=== PATIENT | male | born 1965 | race Caucasian/White ===

== ENCOUNTER → 2016-09-13 | Outpatient (CLI) | payer BC ==
[~2016-09-13] MED LIST: IBUP-1050 PO; MECL1TAB42 PO; NAPR1TAB9 PO; PANT40TA PO
--- NOTE | 2016-09-13 08:17 | DIAGNOSTIC IMAGING REPORT ---
ABDOMEN COMPLETE (US) CLINICAL HISTORY: R10.11 Intermittent right upper quadrant abdominal pain COMPARISON STUDY: No previous studies for comparison. FINDINGS: No hepatic masses are visualized. The pancreas appears normal as visualized. There is no abdominal aortic dilatation. The right kidney measures 10.4 cm in length. The left kidney measures 10.9 cm in length. No focal renal masses are visualized. There is no hydronephrosis. The spleen measures 10.7 cm in length. No splenic masses are visualized. There are small gallbladder polyps versus nonshadowing calculi. The gallbladder wall is the upper limits of normal thickness measuring 3 mm. There is trace gallbladder sludge. The common bile duct measures 7 mm. IMPRESSION: 1. Small gallbladder polyps versus nonshadowing calculi 2. The gallbladder wall is the upper limits of normal thickness measuring 3 mm 3. 7 mm common bile duct 4. No evidence of intrahepatic biliary ductal dilatation. No hepatic, splenic, or renal mass identified Electronically signed by: Jm Paul M.D. 09/13/2016 8:16 AM Dictated Date/Time: 09/13/2016 8:12 AM
== END | disposition home or self-care (01) ==
LOC: C.ULTR 07:38
PROVIDERS: ATTEND Nurse Practitioner Family
DX: R10.11 Right upper quadrant pain (principal)

== ENCOUNTER → 2016-09-24 | Outpatient (CLI) | payer BC ==
--- NOTE | 2016-09-24 09:56 | DIAGNOSTIC IMAGING REPORT ---
NUCLEAR MEDICINE HEPATOBILIARY SCAN HISTORY: R10.11 Abdominal pain, RUQ (right upper quadrant)R50.9 Fever and COMPARISON: Abdominal ultrasound 09/13/2016. TECHNIQUE: Immediately following the intravenous administration of 5.7 mCi Tc-99m Choletec, dynamic anterior abdominal imaging was performed. FINDINGS: Uniform hepatic tracer accumulation is shown. Prompt intrahepatic biliary excretion is seen. The gallbladder and common bile duct are visualized at 20 minutes. Slightly delayed visualization of the small bowel at the 75 minute time interval. IMPRESSION: Slightly delayed visualization of the small bowel. However, no evidence for cystic or common bile duct obstruction. Electronically signed by: Elfego Márquez M.D. 09/24/2016 9:55 AM Dictated Date/Time: 09/24/2016 9:54 AM
== END | disposition home or self-care (01) ==
LOC: C.NUCL 08:12
PROVIDERS: ATTEND Physician Assistant
DX: R50.9 Fever, unspecified (principal); R10.11 Right upper quadrant pain; R93.2 Abnormal findings on diagnostic imaging of liver and biliary tract

== ENCOUNTER → 2016-10-09 | Day surgery (SDC) | payer BC ==
[2016-09-26 13:36] VITALS: Ht 189.2 cm; Wt 102.3 kg
[~2016-10-09] VITALS: Ht 189.2 cm; Wt 102.3 kg
[~2016-10-09] MED LIST changes: +LIDOCAINE HCL 2% 2 ML VIAL (20MG/ML) ONE; -MECL1TAB42 PO; +MIDAZOLAM HCL 1 MG/ML 2ML VIAL ONE; +ONDANSETRON INJ 2 MG/ML 2 ML VIAL ONE; -PANT40TA PO; +PROPOFOL IV EMULSION 10 MG/ML 20 ML VIAL IV ONE
--- NOTE | 2016-10-09 14:36 | Endo History and Physical ---
History & Physical Date of Service: Oct 09, 2016. Chief Complaint: ABDOMINAL PAIN Referring Physician: DR DORSEY History of Present Illness 51 yo CM who presents for EGD secondary to abdominal pain. Past Surgical History Hx Cardiac Surgery: No Hx Internal Defibrillator: No Hx Pacemaker: No Hx Abdominal Surgery: No Hx of Implantable Prosthesis: No Hx Post-Op Nausea and Vomiting: Yes Hx Cancer Surgery: No Hx Thoracic Surgery: No Hx Orthopedic: Yes (RT SHOULDER SCOPE) Hx Urinary Tract Surgery: No Family History None Social History Smoking Status: Never Smoker Hx Substance Use: No Hx Alcohol Use: Yes (SOCIAL/OCCASIONAL) Allergies Coded Allergies: No Known Allergies (Verified , 10/09/16) Current Medications Reported Home Medications Medications Dose Route/Sig Max Daily Dose Days Date Category Aleve (Naproxen) 220 Mg Tab 220 Mg PO DAILY PRN 09/26/16 Reported Advil (Ibuprofen) 200 Mg Tab 200-800 Mg PO Q6H PRN 09/26/16 Reported Vital Signs Weight (Kilograms): 102.27 Height (Feet): 6 Height (Inches): 2.5 Date Time Temp Pulse Resp B/P Pulse Ox O2 Delivery O2 Flow Rate FiO2 10/09/16 13:56 37.0 65 20 139/87 96 Room Air Physical Exam General Appearance: WD/WN, no apparent distress Respiratory/Chest: Auscultation: breath sounds normal Cardiovascular: Heart Auscultation: RRR Abdomen: Bowel Sounds: normal Inspection & Palpation: soft, non-distended, no tenderness, guarding & rebound Assessment and Plan Assessment: 51 yo CM who presents for EGD secondary to abdominal pain. Plan: Proceed with EGD.
--- NOTE | 2016-10-09 15:06 | GI REPORT ---
Procedure Date: 10/09/2016 2:27 PM Procedure: Upper GI endoscopy Indications: Abdominal pain in the right upper quadrant Medicines: Monitored Anesthesia Care Complications: No immediate complications. Estimated Blood Loss: Estimated blood loss: none. Procedure: Pre-Anesthesia Assessment: - Prior to the procedure, a History and Physical was performed, and patient medications and allergies were reviewed. The patient's tolerance of previous anesthesia was also reviewed. The risks and benefits of the procedure and the sedation options and risks were discussed with the patient. All questions were answered, and informed consent was obtained. Prior Anticoagulants: The patient has taken no previous anticoagulant or antiplatelet agents. ASA Grade Assessment: II - A patient with mild systemic disease. After reviewing the risks and benefits, the patient was deemed in satisfactory condition to undergo the procedure. After obtaining informed consent, the endoscope was passed under direct vision. Throughout the procedure, the patient's blood pressure, pulse, and oxygen saturations were monitored continuously. The scope was introduced through the mouth, and advanced to the second part of duodenum. The upper GI endoscopy was accomplished without difficulty. The patient tolerated the procedure well. Findings: The esophagus was normal. A small hiatus hernia was present. Localized mild inflammation characterized by erythema was found in the gastric antrum. Biopsies were taken with a cold forceps for histology. Few non-bleeding cratered duodenal ulcers with no stigmata of bleeding were found in the first part of the duodenum. The largest lesion was 2 mm in largest dimension. Impression: - Normal esophagus. - Small hiatus hernia. - Gastritis. Biopsied. - Multiple non-bleeding duodenal ulcers with no stigmata of bleeding. Recommendation: - Resume previous diet. - Continue present medications. - Await pathology results. - Return to primary care physician as previously scheduled. Everardo Osei DO 10/09/2016 3:05:09 PM This report has been signed electronically. Note Initiated On: 10/09/2016 2:27 PM I attest to the content of the Intraoperative Record and orders documented therein, exceptions below
--- NOTE | 2016-10-09 15:13 | Discharge Instructions ---
Endoscopy Patient Instructions Date / Procedure(s) Performed Oct 09, 2016. EGD Allergy Information Coded Allergies: No Known Allergies (Verified , 10/09/16) Discharge Date / Findings Oct 09, 2016. Duodenal ulcers Gastritis s/p biopsies Hiatal hernia Medication Instructions 1) Start OTC Prilosec 20mg by mouth each morning 1/2 hour prior to breakfast. 2) OK to resume all medications today as prescribed. Reported Home Medications Medications Dose Route/Sig Max Daily Dose Days Date Category Aleve (Naproxen) 220 Mg Tab 220 Mg PO DAILY PRN 09/26/16 Reported Advil (Ibuprofen) 200 Mg Tab 200-800 Mg PO Q6H PRN 09/26/16 Reported Provider Instructions Activity Restrictions - No exercising or heavy lifting for 24 hours. - Do not drink alcohol the day of the procedure. - Do not drive a car or operate machinery until the day after the procedure. - Do not make any important decisions or sign important papers in 24 hours after the procedure. Following Day: - Return to full activity which may include returning to work/school. Diet Start your diet with liquids and light foods (jello, soup, juice, toast). Then eat your usual diet if not nauseated. Treatment For Common After Affects For mild abdominal pain, bloating, or excessive gas: - Rest - Eat lightly - Lie on right side Follow-Up Information Follow-up with DR DORSEY as scheduled Anesthesia Information What You Should Know You have had a procedure that required some medicine to reduce anxiety and discomfort. This treatment is called moderate sedation. After receiving the treatment, you may be sleepy, but you will be able to breathe on your own. The effects of the treatment may last for several hours. Follow these instructions along with Activity/Diet recommendations noted above: * Do NOT do anything where dizziness or clumsiness would be dangerous. * Rest quietly at home today, then you can be up and about tomorrow. * Have a responsible person stay with you the rest of today. * You may have had an I.V. today. If so, you may take the dressing off later today. Recommendations Call your doctor if: * Trouble breathing * Continuous vomiting for more than 24 hours * Temperature above 101 degrees * Severe abdominal pain or bloating * Pain not relieved by pain medicine ordered * There is increased drainage or redness from any incision * A large amount of rectal bleeding greater than 2-3 tablespoons. (If you had a polyp/s removed or have hemorrhoids, a small amount of blood - from the rectum is to be expected.) * You have any unanswered questions or concerns. IN THE EVENT OF A SERIOUS EMERGENCY, GO TO THE NEAREST EMERGENCY ROOM Your discharge instructions were prepared by provider Everardo Osei. Patient Instructions Signature Page Anshul Ambrosio Patient (or Guardian) Signature/Date: I have read and understand the instructions given to me by my caregivers. Caregiver/RN/Doctor Signature/Date: The above-named patient and/or guardian has received patient instructions on this date. + Original Patient Signature Page (only) stays with chart. Please make copy for patient.
[2016-10-09 15:19] VITALS: BP 122/79; PULSE 72; O2SAT 97
--- NOTE | 2016-10-09 15:27 | Anesthesiology Progress Note ---
Anesthesia Post Op Note Date & Time Oct 09, 2016 at 15:26 Vital Signs Pain Intensity: 1 Vital Signs Past 12 Hours Date Time Temp Pulse Resp B/P Pulse Ox O2 Delivery O2 Flow Rate FiO2 10/09/16 15:19 72 18 122/79 97 Room Air 10/09/16 15:03 75 18 109/52 97 Room Air 10/09/16 14:55 81 16 98/55 97 Room Air 10/09/16 13:56 37.0 65 20 139/87 96 Room Air Notes Mental Status: alert / awake / arousable, participated in evaluation Pt Amnestic to Procedure: Yes Nausea / Vomiting: adequately controlled Pain: adequately controlled Airway Patency, RR, SpO2: stable & adequate BP & HR: stable & adequate Hydration State: stable & adequate Anesthetic Complications: no major complications apparent
== END | disposition home or self-care (01) ==
LOC: C.GI 13:28
PROVIDERS: ATTEND Internal Medicine
DX: K26.9 Duodenal ulcer, unspecified as acute or chronic, without hemorrhage or perforation (principal); K29.70 Gastritis, unspecified, without bleeding; K46.9 Unspecified abdominal hernia without obstruction or gangrene